=== PATIENT | female | born 1990 | race Caucasian/White ===

== ENCOUNTER 2023-08-12 17:42 | Emergency (ER) | payer OTHER, SELFPAY ==
[2023-08-12 17:44] VITALS: BP 151/88; PULSE 68; RESP 18; TEMP 36.2; O2SAT 97
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
== END 2023-08-12 20:56 | disposition home or self-care (01) ==
PROVIDERS: Emergency Provider Emergency Medicine; PCP Family Medicine Sports Medicine
DX: S06.0X0A Concussion without loss of consciousness, initial encounter (principal); S16.1XXA Strain of muscle, fascia and tendon at neck level, initial encounter; V43.52XA Car driver injured in collision with other type car in traffic accident, initial encounter
CPT/HCPCS: 99283